=== PATIENT | female | born 1965 | race Caucasian/White ===

== ENCOUNTER → 2016-11-18 | Outpatient (CLI) | payer OTHER ==
[~2016-11-18] MED LIST: ALBUTEROL17 GM; ALPRAZOLAM; FLONASE16 GM; PRILOSEC; PROZAC; SINGULAIR
--- NOTE | ~2016-11-18 | CR94 ---
[facility] A Service of [facility] & [facility] / [facility] RADIOLOGY TEXT RESULTS PATIENT: TIM GONZALEZ LOCATION: [facility] [employer] [facility] : 63 UNIT #: [id number] AGE: [address]: Fabiana KyleP SEX: F ORDER DR: [id number] [facility] [address] [place], [place] [address] [id number] O MR#: [id number] Acc #: [id number] NAME: TIM GONZALEZ : 1965 SEX: F STUDY DATE/TIME: 11/18/2016 13:23 UNIT: [facility] ROOM: STUDY DESCRIPTION: CR Elbow Min 3 Views Rt Attending Physician: Fabiana Kyle A.P.R.N. Referring Physician: Fabiana Kyle A.P.R.N. Ordering Physician: Fabiana Kyle A.P.R.N. Primary Care Physician: Brandon Puckett M.D. MEDICAL IMAGING REPORT This report is preliminary unless electronic signature is present EXAM Right elbow series dated 11/18/2016. COMPARISON None. HISTORY Right elbow and right shoulder pain for 1 month. FINDINGS Three views of the right elbow were obtained. There is no acute displaced fracture, dislocation or joint effusion. Within normal limits. Dictated by... Neo Livingston M.D. THIS IS AN ELECTRONICALLY VERIFIED REPORT Neo Livingston M.D. at 11/21/2016 7:32 PM CPR/psc TD: 11/20/2016 23:34 JOB #: [id number] MEDICAL IMAGING REPORT Page 1 of 1 COPY
--- NOTE | ~2016-11-18 | CR230 ---
[facility] A Service of [facility] & [facility] RADIOLOGY TEXT RESULTS PATIENT: TIM GONZALEZ LOCATION: [facility] : 63 UNIT #: [id number] AGE: [address]: Fabiana Kyle TELECOMMUNICATIONS OPERATOR SEX: F ORDER DR: [id number] [facility] [address] [place], [place] [address] [id number] O MR#: [id number] Acc #: [id number] NAME: TIM GONZALEZ : 1965 SEX: F STUDY DATE/TIME: 11/18/2016 13:23 UNIT: [facility] ROOM: STUDY DESCRIPTION: CR Shoulder Min 2 View Rt Attending Physician: Fabiana Kyle A.P.R.N. Referring Physician: Fabiana Kyle A.P.R.N. Ordering Physician: Fabiana Kyle A.P.R.N. Primary Care Physician: Brandon Puckett M.D. MEDICAL IMAGING REPORT This report is preliminary unless electronic signature is present EXAM Right shoulder series dated 11/18/2016. COMPARISON Chest 2 views dated 11/05/2014. HISTORY Right shoulder and right elbow pain for 1 month. No known injury. FINDINGS Three views of the right shoulder were obtained. Mild right acromioclavicular joint arthritic changes are seen. Right glenohumeral joint is intact. No acute displaced fracture, dislocation, destructive bony mass or significant arthritic change is in the glenohumeral joint. Dictated by... Neo Livingston M.D. THIS IS AN ELECTRONICALLY VERIFIED REPORT Noe Livingston M.D. at 11/21/2016 7:32 PM CPR/psc TD: 11/20/2016 23:35 JOB #: [id number] MEDICAL IMAGING REPORT Page 1 of 1 COPY
== END | disposition home or self-care (01) ==
LOC: CRAD 13:04
DX: M25.521 Pain in right elbow (principal); M25.511 Pain in right shoulder
CPT/HCPCS: 73030; 73080